=== PATIENT | male | born 1970 | race Caucasian/White ===

== ENCOUNTER 2020-01-28 15:02 | Inpatient (IN) | payer SELFPAY ==
[~2020-01-28] VITALS: Ht 200.7 cm; Wt 155.2 kg
[~2020-01-28 15:02] MED LIST: BYDUREON SC; CILOXAN 5 ML5 M1 OP; CILOXAN 5 ML5 M1 OT; CIPROFLOXACIN500 MG PO; DAYPRO600 M1 PO; HUMALOG100 U/ML SC; HYDROCODONE BIT1 T11 PO; LANTUS100 U/ML SC; METFORMIN1000 MG PO; PERCOCET 325 MG1 TA2 PO; PRECOSE50 MG PO; QUINAPRIL20 MG PO; ROBAXIN750 MG PO; VICODIN 500 MG-1 TAB PO; ZOFRAN4 MG PO
[2020-01-28 15:32] VITALS: BP 142/76
[2020-01-28 16:33] LABS: BASO % 0.5 % (0.0-1.0); EOS # 0.2 10*3/uL (0.0-0.4); EOS % 2.6 % (1.0-4.0); HEMATOCRIT 43.9 % (42.0-52.0); LYMPH # 1.3 10*3/uL (1.3-4.4); LYMPH % 16.9 % (27.0-41.0); MEAN CELL VOLUME 81.6 fl (80.0-94.0); MEAN CORPUSCULAR HGB 26.6 pg (27.0-31.0); MEAN CORPUSCULAR HGB CONC 32.6 g/dl (33.0-37.0); MEAN PLATELET VOLUME 9.8 fl (9.6-12.3); MONO # 0.5 10*3/uL (0.1-1.0); MONO % 6.6 % (3.0-9.0); NEUT # 5.3 10*3/uL (2.3-7.9); PLATELET COUNT AUTOMATED 239 10*3/uL (130-400); RED BLOOD COUNT 5.38 10*6/uL (4.50-5.90); RED CELL DISTRI WIDTH 13.5 % (0-14.5); WHITE BLOOD COUNT 7.4 10*3/uL (4.8-10.8)
[2020-01-28 16:55] LABS: ALBUMIN 2.6 gm/dl (3.1-4.5); ALKALINE PHOSPHATASE 130 U/L (45-117); BUN 15 mg/dl (7-24); CHLORIDE 97 mmol/L (98-107); CREATININE 1.01 mg/dL (0.70-1.30); POTASSIUM 4.6 mmol/L (3.5-5.1); SGOT/AST 10 IU/L (3-35); SGPT/ALT 22 U/L (12-78); SODIUM 134 mmol/L (136-145); TOTAL PROTEIN 7.8 gm/dL (6.4-8.2)
--- NOTE | 2020-01-28 18:25 | NUR ---
UNABLE TO TAKE PT TO FLOOR AT THIS TIME, PT IN ULTRASOUND.
--- NOTE | 2020-01-28 18:52 | NUR ---
PT REMAINS IN ULTRASOUND.
[2020-01-28 19:00] VITALS: BP 138/72
[2020-01-28 19:22] VITALS: BP 164/89
--- NOTE | 2020-01-28 19:22 | NUR ---
Time: 1921 A 49 year old male admitted to 4E under services of AGAPITO RODRIGUEZ DO. Pt. arrived via stretcher from ER. Chief complaint: signs of infection from rt foot. RICKY BANKS
[2020-01-28] MEDS ORDERED: HUMALOG100 UNIT/1 SQ (19:52)
[2020-01-28] MEDS ORDERED: METFORMIN XR500 MG PO (19:53)
[2020-01-28 20:00] VITALS: BP 164/89
--- NOTE | 2020-01-28 22:25 | NUR ---
PT. GIVEN NORCO AND RESTORIL PER PT REQUEST AT 2124. PT. SLEEPING, NORCO AND RESTORIL EFFECTIVE.
[2020-01-29] VITALS (8 sets, daily range): BP systolic 126–177; BP diastolic 72–93
--- NOTE | 2020-01-29 | NUR ---
PODIATRY NOTIFIED BY ER OF CONSULT. PT. NPO AFTER MIDNIGHT FOR I&D DEBRIDMENT IN AM.
[2020-01-29 06:52] LABS: BASO % 0.5 % (0.0-1.0); EOS # 0.2 10*3/uL (0.0-0.4); EOS % 2.2 % (1.0-4.0); HEMATOCRIT 47.7 % (42.0-52.0); LYMPH # 1.4 10*3/uL (1.3-4.4); LYMPH % 16.9 % (27.0-41.0); MEAN CELL VOLUME 83.1 fl (80.0-94.0); MEAN CORPUSCULAR HGB CONC 32.5 g/dl (33.0-37.0); MEAN PLATELET VOLUME 9.9 fl (9.6-12.3); MONO # 0.5 10*3/uL (0.1-1.0); NEUT # 5.9 10*3/uL (2.3-7.9); NEUT % 72.8 % (47.0-73.0); RED BLOOD COUNT 5.74 10*6/uL (4.50-5.90); RED CELL DISTRI WIDTH 13.7 % (0-14.5); WHITE BLOOD COUNT 8.1 10*3/uL (4.8-10.8)
[2020-01-29 06:53] LABS: PLATELET COUNT AUTOMATED 316 10*3/uL (130-400)
[2020-01-29 07:00] LABS: ACT PARTIAL THROMBO TIME 28.8 SECONDS (20.0-32.1)
[2020-01-29 07:08] LABS: ALBUMIN 2.7 gm/dl (3.1-4.5); ALKALINE PHOSPHATASE 118 U/L (45-117); BUN 11 mg/dl (7-24); CHLORIDE 97 mmol/L (98-107); CHOLESTEROL 149 mg/dL (<200); CREATININE 0.93 mg/dL (0.70-1.30); HDL CHOLESTEROL 26 mg/dl (40-60); LDL CHOLESTEROL 58 mg/dL (9-159); POTASSIUM 3.9 mmol/L (3.5-5.1); SGOT/AST 15 IU/L (3-35); SGPT/ALT 27 U/L (12-78); SODIUM 133 mmol/L (136-145); TOTAL PROTEIN 8.7 gm/dL (6.4-8.2); TRIGLYCERIDES 323 mg/dl (<150); VLDL CHOLESTEROL 65 mg/dL (6-40)
[2020-01-29 07:49] LABS: VITAMIN D, 25-HYDROXY 19.6 ng/mL (30-100)
--- NOTE | 2020-01-29 09:00 | NUR ---
case management attempted to visit with patient, he was out of room for procedure, will see later today
--- NOTE | 2020-01-29 11:21 | NUR ---
NOTIFIED OFFICE OF NEW CONSULT.
--- NOTE | 2020-01-29 22:45 | NUR ---
PRN IV MORPHINE GIVEN FOR COMPLAINTS OF FOOT PAIN RATING A 8/10. WILL CONTINUE TO MONITOR FOR EFFECTIVNESS
--- NOTE | 2020-01-29 23:20 | NUR ---
PT STATES PAIN IS BETTER, RATING IT A 4/10. WILL CONTINUE TO MONITOR, CALL LIGHT WITHIN REACH
[2020-01-30] VITALS: BP 131/73
[2020-01-30 03:28] LABS: BASO % 0.3 % (0.0-1.0); EOS # 0.1 10*3/uL (0.0-0.4); EOS % 1.1 % (1.0-4.0); HEMATOCRIT 42.6 % (42.0-52.0); LYMPH # 1.1 10*3/uL (1.3-4.4); LYMPH % 12.2 % (27.0-41.0); MEAN CELL VOLUME 83.4 fl (80.0-94.0); MEAN CORPUSCULAR HGB 26.6 pg (27.0-31.0); MEAN CORPUSCULAR HGB CONC 31.9 g/dl (33.0-37.0); MEAN PLATELET VOLUME 9.6 fl (9.6-12.3); MONO # 0.8 10*3/uL (0.1-1.0); MONO % 8.9 % (3.0-9.0); NEUT # 7.1 10*3/uL (2.3-7.9); NEUT % 76.4 % (47.0-73.0); PLATELET COUNT AUTOMATED 234 10*3/uL (130-400); RED BLOOD COUNT 5.11 10*6/uL (4.50-5.90); RED CELL DISTRI WIDTH 13.6 % (0-14.5); WHITE BLOOD COUNT 9.3 10*3/uL (4.8-10.8)
--- NOTE | 2020-01-30 03:50 | NUR ---
Patient sleeping. Respirations relaxed and easy. Mansoors DOMINIQUE Dunn
[2020-01-30 03:51] LABS: BUN 14 mg/dl (7-24); CHLORIDE 102 mmol/L (98-107); CREATININE 1.03 mg/dL (0.70-1.30); POTASSIUM 3.7 mmol/L (3.5-5.1); SODIUM 137 mmol/L (136-145)
--- NOTE | 2020-01-30 03:55 | NUR ---
DR ISRAEL NOTIFIED OF [facility] .7
--- NOTE | 2020-01-30 04:37 | NUR ---
PRN MORPHINE IV GIVEN FOR COMPLAINTS FO RIGHT FOOT PAIN WHICH IS RATED 5/10. WILL CONTINUE TO MONITOR FOR EFFECTIVENESS
--- NOTE | 2020-01-30 05:34 | NUR ---
MORPHINE EFFECTIVE PER PT, PAIN RATED 4/10. WILL CONTINUE TO MONITOR
[2020-01-30 08:00] VITALS: BP 147/73
--- NOTE | 2020-01-30 09:00 | NUR ---
[employer] Engineer in to talk to patient. Patient states lives at home with . There are 2 steps in the home. 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 discussed with him Veronique from [employer] will visit with him and see if he would qualify for medicaid and also help fill out the paperwork for help with the cos of the hospital stay. also discussed with him having a wound vac to his foot and that case management will contact [facility] and see if they have vicky care for home if he would need the wound vac at home, case management will follow with patient. ADARSH JOHN
--- NOTE | 2020-01-30 09:30 | NUR ---
case management contacted [facility], spoke to Riccardo, she stated they have vicky care but she is unable to quote an amount patient will be responsible for until they receive his fill out financial forms, she will fax these forms to case management, she stated the standard rate for daily rental of the wound vac is $125 a day. case management also spoke to Veronique from [employer], she stated she was going to send in the medicaid application for the patient. case management will follow
--- NOTE | 2020-01-30 10:06 | NUR ---
PATIENT C/O RIGHT FOOT PAIN. MEDICATED WITH MORPHINE PER PRN ORDER. WILL CONTINUE TO MONITOR.
--- NOTE | 2020-01-30 10:30 | NUR ---
PAIENT STATES MORPHINE WAS EFFECTIVE.
[2020-01-30 16:00] VITALS: BP 153/77
[2020-01-30 16:08] LABS: ACID FAST SPEC PROCESSING Tissue Grinding (.)
--- NOTE | 2020-01-30 17:00 | NUR ---
PATIENT C/O PAIN RIGHT FOOT, RATES 6/10 AND STABBING MEDICATED WITH MORPHINE ORDERED PRN. WHITE BOARD UPDATED.
--- NOTE | 2020-01-30 18:00 | NUR ---
PATIENT REPORTS SOME RELEIF FROM MORPHINE GIVEN X 1 HOUR AGO RATES PAIN 3/10
--- NOTE | 2020-01-30 19:30 | NUR ---
ASSESSMENT COMPLETE WITH NO INCIDENCE. PT STATES HE HAS SOME PAIN IN HIS RIGHT FOOT, BUT NO OTHER COMPLAINTS. RESPIRATIONS ARE RELAXED AND REGULAR. CALL LIGHT WITHIN REACH, WILL CONTINUE TO MONITOR
--- NOTE | 2020-01-30 21:10 | NUR ---
PRN MORPHINE IV GIVEN FOR COMPLAINTS OF RIGHT FOOT PAIN RATED A 6/10. WILL MONITOR FOR EFFECTIVNESS
--- NOTE | 2020-01-30 22:00 | NUR ---
PRN MORPHINE EFFECTIVE PER PT
[2020-01-31] VITALS: BP 155/79
--- NOTE | 2020-01-31 05:10 | NUR ---
PRN MORPHINE IV GIVEN FOR PAIN IN RIGHT FOOT RATED A 5/10. WILL MONITOR FOR EFFECTIVENESS
[2020-01-31 05:55] LABS: BASO % 0.5 % (0.0-1.0); EOS # 0.2 10*3/uL (0.0-0.4); EOS % 2.5 % (1.0-4.0); HEMATOCRIT 43.1 % (42.0-52.0); LYMPH # 1.3 10*3/uL (1.3-4.4); LYMPH % 20.5 % (27.0-41.0); MEAN CELL VOLUME 83.9 fl (80.0-94.0); MEAN CORPUSCULAR HGB 26.7 pg (27.0-31.0); MEAN CORPUSCULAR HGB CONC 31.8 g/dl (33.0-37.0); MEAN PLATELET VOLUME 10.1 fl (9.6-12.3); MONO # 0.6 10*3/uL (0.1-1.0); MONO % 10.1 % (3.0-9.0); NEUT # 4.1 10*3/uL (2.3-7.9); NEUT % 65.3 % (47.0-73.0); PLATELET COUNT AUTOMATED 213 10*3/uL (130-400); RED BLOOD COUNT 5.14 10*6/uL (4.50-5.90); WHITE BLOOD COUNT 6.3 10*3/uL (4.8-10.8)
[2020-01-31 05:56] LABS: ALBUMIN 2.3 gm/dl (3.1-4.5); ALKALINE PHOSPHATASE 92 U/L (45-117); BUN 11 mg/dl (7-24); CHLORIDE 101 mmol/L (98-107); CREATININE 1.08 mg/dL (0.70-1.30); POTASSIUM 3.9 mmol/L (3.5-5.1); SGOT/AST 10 IU/L (3-35); SGPT/ALT 19 U/L (12-78); SODIUM 133 mmol/L (136-145); TOTAL PROTEIN 7.6 gm/dL (6.4-8.2)
--- NOTE | 2020-01-31 06:09 | NUR ---
PRN MORPHINE EFFECTIVE, PER PT. WILL CONTINUE TO MONITOR
--- NOTE | 2020-01-31 07:00 | NUR ---
ARRIVED ON SHIFT, REPORT RECEIVED FROM OFFGOING NURSE, ASSUMED CARE OF PATIENT.
--- NOTE | 2020-01-31 07:45 | NUR ---
INTRODUCED SELF TO PATIENT, BED IN LOW POSITION, WHEEL LOCKS ENGAGED, SIDE RAILS UP X 2 FOR TURNING AND REPOSITIONING, CALL LIGHT WITHIN REACH, NO NEEDS VOICED AT THIS TIME, WHITE BOARD UPDATED.
[2020-01-31 08:00] VITALS: BP 150/80
--- NOTE | 2020-01-31 09:00 | NUR ---
case management visits with patient, gave him vicky care form from [facility] to fill out and case management will fax, also discussed with him if he needs iv antibiotics would he be able to come into the hospital on a daily basis and receive the iv antibiotics, he was agreeable he stated he had done this in the past. he stated if there is any cost to the wound vac he would be unable to afford this, he stated he was unable to afford his medications. educated him that he could have his prescriptons filled in the hospital pharmacy for only a few dollars a prescription and the hospital could pay for the first script. he was agreeable with this, case management will follow
--- NOTE | 2020-01-31 09:30 | NUR ---
CALL PLACED TO HOSPITALIST LINE, RECEIVED ORDER FOR PATIENT OK TO REMOVE TELEMETRY TO SHOWER.
[2020-01-31] MEDS ORDERED: CEFAZOLIN1 G1 IV (10:13)
[2020-01-31 12:00] VITALS: BP 138/81
--- NOTE | 2020-01-31 12:26 | NUR ---
CALL PLACED TO ADVISED PATIENTS XRAY WAS BACK AND IS IN GOOD PLACEMENT, ALSO LET HIM KNOW THAT PATIENT WAS NOT GOING TO BE ABLE TO COME IN TID FOR IV MEDICATION, REQUESTED I CALL DR. LUEVANO CALLED DR. GELLER, SPOKE WITH
--- NOTE | 2020-01-31 12:59 | NUR ---
SPOKE TO DR. IQBAL ADVISED THAT PATIENT WILL NOT BE ABLE TO COME THREE TIMES A DAY FOT IV ATB, BUT IS AGREEABLE TO DAILY, DR. LUEVANO STATED SHE WILL HAVE RESIDENT BRING UP SCRIPT FOR A DIFFERENT MEDICATION. SPOKE TO ADARSH IN CASE MANAGEMENT, SHE VERSED PATIENT COULD NOT GO HOME WITH WOUND VAC, SPOKE TO PODIATRY RESIDENT HE STATED HE WILL BE UP TO REMOVE IF PATIENT IS BEING DISCHARGED,, DR. JANG ADVISED.
--- NOTE | 2020-01-31 13:00 | NUR ---
case management received a message that Dr Slaughter let a prescription for iv antibiotics, these were every 8 hours and patient will have to come into the hospital as an outpatient, discussed this with patient and he stated he was not able to come into the hospital 3 times a day for iv antibiotics, he stated his is disabled and he is unable to drive and will have to have someone bring him to the hospital. talked with patient's nurse, she contacted Dr Slaughter and she changed patient's iv antibiotics to once a day, patient stated he was able to do this, case management also discussed with patient the wound vac, even with vicky care, was going to cost the patient $62 a day for rental and supplies, patient stated he was unable to afford this, the hospital is unable to help with these charges due to cost and liablity of equipment. talked with podiatry resident, they were insistant that patient have the wound vac at home, educated him that even with vicky care from [facility] the patient is still unable to afford the amount per week for the wound vac, patient will stay in the hospital over the weekend to monitor the drainage from the wound vac, he will be re evaluated on Monday, case management will follow
--- NOTE | 2020-01-31 14:09 | NUR ---
PODIATRY JUST COMPLETED WOUND CARE, PATIENT C/O RIGHT FOOT PAIN 10/10 MEDICATED WITH MORPHINE ORDERED.
--- NOTE | 2020-01-31 15:09 | NUR ---
PATIENT REPORT PAIN HAS EASED UP TO 5/1O FROM MORPHINE GIVEN X 1 HOUR AGO
--- NOTE | 2020-01-31 15:30 | NUR ---
PT ADMITS TO RIGHT FOOT PAIN. REFUSES PAIN MEDICATION AT THIS TIME.
[2020-01-31 16:00] VITALS: BP 156/78
--- NOTE | 2020-01-31 18:03 | NUR ---
PATIENT C/O BURING PAIN RIGHT FOOT, WORSENING SINCE DRESSING CHANGE TODAY, MEDICATED WITH MORPHINE ORDERED.
--- NOTE | 2020-01-31 19:10 | NUR ---
REPORT RECEIVED FROM KAMRON MARROQUIN. PT WATCHING TV. WOUND VAC IN PLACE. VOICES NO COMPLAINTS. CALL LIGHT IN REACH
[2020-01-31 20:00] VITALS: BP 145/74
--- NOTE | 2020-01-31 20:55 | NUR ---
MALINI GIVEN FOR COMPLAINTS OF R FOOT PAIN. WILL MONITOR.
--- NOTE | 2020-01-31 21:50 | NUR ---
PER PT, NORCO EFFECTIVE
--- NOTE | 2020-01-31 23:30 | NUR ---
PT SLEEPING AT THIS TIME. WOUND VAC IN PLACE. CALL LIGHT IN REACH
[2020-02-01] VITALS: BP 145/67
--- NOTE | 2020-02-01 02:30 | NUR ---
PT SLEEPING AT THIS TIME. WOUND VAC INTACT. CALL LIGHT IN REACH
--- NOTE | 2020-02-01 05:31 | NUR ---
IN TO SEE PT. PT AWAKENS EASILY AT THIS TIME. VOICES NO COMPLAINTS, CALL LIGHT IN REACH
[2020-02-01 05:52] LABS: BUN 10 mg/dl (7-24); CHLORIDE 102 mmol/L (98-107); CREATININE 0.96 mg/dL (0.70-1.30); POTASSIUM 3.8 mmol/L (3.5-5.1); SODIUM 137 mmol/L (136-145)
[2020-02-01 05:55] LABS: BASO % 0.3 % (0.0-1.0); EOS # 0.2 10*3/uL (0.0-0.4); HEMATOCRIT 42.1 % (42.0-52.0); LYMPH # 1.7 10*3/uL (1.3-4.4); LYMPH % 26.5 % (27.0-41.0); MEAN CELL VOLUME 83.4 fl (80.0-94.0); MEAN CORPUSCULAR HGB 26.3 pg (27.0-31.0); MEAN CORPUSCULAR HGB CONC 31.6 g/dl (33.0-37.0); MEAN PLATELET VOLUME 10.1 fl (9.6-12.3); MONO # 0.5 10*3/uL (0.1-1.0); MONO % 8.5 % (3.0-9.0); NEUT # 3.9 10*3/uL (2.3-7.9); NEUT % 60.6 % (47.0-73.0); PLATELET COUNT AUTOMATED 206 10*3/uL (130-400); RED BLOOD COUNT 5.05 10*6/uL (4.50-5.90); RED CELL DISTRI WIDTH 13.8 % (0-14.5); WHITE BLOOD COUNT 6.4 10*3/uL (4.8-10.8)
--- NOTE | 2020-02-01 07:00 | NUR ---
ARRIVED ON SHIFT, REPORT RECEIVED FROM OFFGOING NURSE, ASSUMED CARE OF PATIENT.
--- NOTE | 2020-02-01 07:19 | NUR ---
Shift chart check completed.
--- NOTE | 2020-02-01 07:30 | NUR ---
INTRODUCED SELF TO PATIENT, BED IN LOW POSITION WITH WHEEL LOCKS ENGAGED, SIDE RAILS UP X 2 FOR TURNING AND REPOSITIOINING, CALL LIGHT WITHIN REACH, NO NEEDS VOICED AT THIS TIME.
[2020-02-01 08:00] VITALS: BP 145/75
--- NOTE | 2020-02-01 08:47 | NUR ---
PATIENT C/O OF RIGHT FOOT AND LEG PAIN RATES 6/10 AND SHARP MEDICATED WITH NORCO ORDERED PRN, WHITE BOARD UPDATED.
--- NOTE | 2020-02-01 09:46 | NUR ---
FOLLOW UP ON NORCO GIVEN X 1 HOUR AGO, EFFECTIVE PATIENTS PAIN LEVEL NOW REPORTED AT 3/10.
[2020-02-01 12:00] VITALS: BP 147/78
--- NOTE | 2020-02-01 14:04 | NUR ---
PATIENT C/O OF FEELING CONSTIPATED, MEDICATED WITH PO DULCOLAX.
[2020-02-01 16:00] VITALS: BP 154/75
--- NOTE | 2020-02-01 19:00 | NUR ---
REPORT RECEIVED. PT SITTING UP IN BED. WOUND VAC IN PLACE, CALL LIGHT IN REACH
--- NOTE | 2020-02-01 21:08 | NUR ---
MALINI GIVEN FOR COMPLAINTS OF RIGHT FOOT PAIN. WILL MONITOR
--- NOTE | 2020-02-01 22:08 | NUR ---
PT STATES THAT NORCO HELPED HIS PAIN
[2020-02-02] VITALS: BP 134/76
--- NOTE | 2020-02-02 00:01 | NUR ---
PT SLEEPING AT THIS TIME. CALL LIGHT IN REACH
--- NOTE | 2020-02-02 03:00 | NUR ---
PT SLEEPING AT THIS TIME. WOUND VAC IN PLACE, CALL LIGHT IN REACH
--- NOTE | 2020-02-02 06:00 | NUR ---
PT AWAKENS EASILY UPON ENTERING ROOM. NO COMPLAINTS VOICED, CALL LIGHT IN REACH
[2020-02-02 06:07] LABS: BASO % 0.3 % (0.0-1.0); EOS # 0.2 10*3/uL (0.0-0.4); EOS % 2.6 % (1.0-4.0); HEMATOCRIT 42.7 % (42.0-52.0); LYMPH # 1.4 10*3/uL (1.3-4.4); LYMPH % 23.5 % (27.0-41.0); MEAN CELL VOLUME 83.1 fl (80.0-94.0); MEAN CORPUSCULAR HGB 26.3 pg (27.0-31.0); MEAN CORPUSCULAR HGB CONC 31.6 g/dl (33.0-37.0); MEAN PLATELET VOLUME 9.9 fl (9.6-12.3); MONO # 0.5 10*3/uL (0.1-1.0); MONO % 8.1 % (3.0-9.0); NEUT # 3.8 10*3/uL (2.3-7.9); PLATELET COUNT AUTOMATED 225 10*3/uL (130-400); RED BLOOD COUNT 5.14 10*6/uL (4.50-5.90); RED CELL DISTRI WIDTH 13.7 % (0-14.5); WHITE BLOOD COUNT 5.8 10*3/uL (4.8-10.8)
[2020-02-02 06:27] LABS: ALBUMIN 2.4 gm/dl (3.1-4.5); CHLORIDE 100 mmol/L (98-107); POTASSIUM 3.9 mmol/L (3.5-5.1); SODIUM 136 mmol/L (136-145)
[2020-02-02 06:33] LABS: ALKALINE PHOSPHATASE 92 U/L (45-117); BUN 12 mg/dl (7-24); SGOT/AST 15 IU/L (3-35); SGPT/ALT 18 U/L (12-78); TOTAL PROTEIN 7.7 gm/dL (6.4-8.2)
--- NOTE | 2020-02-02 07:00 | NUR ---
ARRIVED ON SHIFT, REPORT RECEIVED FROM OFF GOING NURSE, ASSUMED CARE OF PATIENT.
--- NOTE | 2020-02-02 07:30 | NUR ---
INTRODUCED SELF TO PATIENT, BED IN LOW POSITION, WHEEL LOCKS ENGAGED, SIDE RAILS UP X 2 FOR TURNING AND REPOSITIONING, CALL LIGHT WITHIN REACH, WOUND VAC, ATTACHED, NO NEEDS VOICED AT THIS TIME, WHITE BOARD UPDATED.
[2020-02-02 08:00] VITALS: BP 128/82
--- NOTE | 2020-02-02 09:34 | NUR ---
PATIENT C/O OF RIGHT FOOT PAIN 6/ MEDICATED WITH NORCO ORDERED WHITE BOARD UPDATED.
--- NOTE | 2020-02-02 09:36 | NUR ---
PATIENT C/O RIGHT FOOT PAIN 5/10 MEDICATED WITH NORCO ORDERED PRN, WHITE BOARD UPDATED.
--- NOTE | 2020-02-02 10:34 | NUR ---
PATIENT REPORTS GOOD RELEIF FROM NORCO GIVEN X 1 HOUR AGO.
--- NOTE | 2020-02-02 13:45 | NUR ---
PATIENT C/O OF CONSTIPATION, CALL PLACED TO DR. MENEZES SHE VERSED SHE WILL ORDER MOM.
--- NOTE | 2020-02-02 14:05 | NUR ---
PATIENT C/O OF CONSTIPATION MEDICATED WITH MOM ORDERED PRN.
[2020-02-02 16:00] VITALS: BP 109/76
--- NOTE | 2020-02-02 19:10 | NUR ---
REPORT RECEIVED. PT WATCHING TV. NO COMPLAINTS VOICED, CALL LIGHT IN REACH
[2020-02-02 20:00] VITALS: BP 154/96
--- NOTE | 2020-02-02 21:04 | NUR ---
NORCO GIVEN PER ORDER FOR COMPLAINTS OF RIGHT FOOT PAIN. WILL MONITOR
--- NOTE | 2020-02-02 22:00 | NUR ---
PER PT, NORCO EFFECTIVE FOR PAIN
[2020-02-03] VITALS: BP 146/85
--- NOTE | 2020-02-03 01:00 | NUR ---
PT SLEEPING AT THIS TIME.
--- NOTE | 2020-02-03 04:00 | NUR ---
PT ASLEEP AT THIS TIME. WOUND VAC IN PLACE, CALL LIGHT IN REACH
--- NOTE | 2020-02-03 06:28 | NUR ---
MALINI GIVEN FOR COMPLAINTS OF R FOOT PAIN. WILL MONITOR
--- NOTE | 2020-02-03 07:09 | NUR ---
PER PT, NORCO EFFECTIVE FOR PAIN
--- NOTE | 2020-02-03 07:30 | NUR ---
PT RESTING IN BED. VOICES NO CONCERNS. RESPS EASY AND NON LABORED. NO S/S OF DISTRESS NOTED. VSS. WHITE BOARD UPDATED. POC DISCUSSED W PT. A/O X3. WOUND VAC INTACT TO RLE-DRSG C/D/I, MINIMAL DRAINAGE NOTED. PT DENIES ANY NUMBNESS/TINGLING IN RLE. STATES HE WANTS TO GO HOME TODAY. PICC LINE IN R ARM PATENT. CALL LIGHT WITHIN REACH. WILL CONTINUE TO MONITOR.
[2020-02-03 08:00] VITALS: BP 153/77
--- NOTE | 2020-02-03 09:00 | NUR ---
case management visits with patient, he is a possibly discharge to home today and will be returning to the hospital as an outpatient on a daily basis for iv antibiotics, educated patient that case management set up 11am time spot for him to return to the hospital for iv antibiotic, if patient is not discharged to home today appointment time will be rescheduled
--- NOTE | 2020-02-03 10:40 | NUR ---
PER KAMILA PALACIOS NP PT CANNOT BE DISCHARGED HOME WITH A WOUND VAC-HE IS UNABLE TO AFFORD IT AND THE SUPPLIES. STATES TO CONTACT PODIATRY FOR THEM TO REMOVE IT.
--- NOTE | 2020-02-03 10:43 | NUR ---
ATTEMPTING TO REACH PODIATRY REGARDING DISCONTINUATION OF WOUND VAC. WILL TRY AGAIN
--- NOTE | 2020-02-03 10:51 | NUR ---
ATTEMPTED TO REACH PODIATRY RESIDENT AGAIN.
--- NOTE | 2020-02-03 11:09 | NUR ---
SPOKE W PODIATRY RESIDENT- STATE THEY ARE IN SURGERY AND SHE WILL RELAY MESSAGE TO THE DOCTOR
[2020-02-03 11:35] VITALS: BP 148/73
[2020-02-03] MEDS ORDERED: ERTAPENEM1 GM IJ ×2 (13:23→13:35)
[2020-02-03] MEDS ORDERED: LANTUS SOL100 UNIT/1 SC ×2 (13:27→13:42)
[2020-02-03] MEDS ORDERED: HUMALOG100 UNIT/1 SQ (13:31)
[2020-02-03] MEDS ORDERED: HYDROCODONE-AC1 EAC1 PO (13:33)
[2020-02-03] MEDS ORDERED: VITAMIN D31250 MC1 PO (13:39)
--- NOTE | 2020-02-03 14:14 | NUR ---
PODIATRY INTO REMOVE WOUND VAC-NEW DRESSING WAS APPLIED BY THEM. PT STATES HE WANTS TO GO HOME AND DOES NOT NEED PICTURES TAKEN OFF HIS LEG.
--- NOTE | 2020-02-03 15:15 | NUR ---
Discharge instructions reviewed with patient/family. Patient receptive and verbalizes understanding. Follow-up care arranged. Written instructions given to patient/family. HISSOM,JACIEL The Discharge Plan/Instructions have been completed.
== END 2020-02-03 14:31 | disposition home or self-care (01) | DRG 628 ==
LOC: ED 15:02 → EDHOLD 16:45 → 4E 16:45
PROVIDERS: Hospitalist; Podiatrist; Podiatrist Foot & Ankle Surgery; Student in an Organized Health Care Education/Training Program; ADMIT Family Medicine
DX: E11.69 Type 2 diabetes mellitus with other specified complication (principal); E43 Unspecified severe protein-calorie malnutrition; E87.1 Hypo-osmolality and hyponatremia; M86.171 Other acute osteomyelitis, right ankle and foot; L97.516 Non-pressure chronic ulcer of other part of right foot with bone involvement without evidence of necrosis; E11.628 Type 2 diabetes mellitus with other skin complications; E11.621 Type 2 diabetes mellitus with foot ulcer; E87.8 Other disorders of electrolyte and fluid balance, not elsewhere classified; E55.9 Vitamin D deficiency, unspecified; E11.65 Type 2 diabetes mellitus with hyperglycemia; S93.141A Subluxation of metatarsophalangeal joint of right great toe, initial encounter; L08.9 Local infection of the skin and subcutaneous tissue, unspecified; E11.42 Type 2 diabetes mellitus with diabetic polyneuropathy; E11.51 Type 2 diabetes mellitus with diabetic peripheral angiopathy without gangrene; D64.9 Anemia, unspecified; S91.101A Unspecified open wound of right great toe without damage to nail, initial encounter; B95.7 Other staphylococcus as the cause of diseases classified elsewhere; B95.4 Other streptococcus as the cause of diseases classified elsewhere; X58.XXXA Exposure to other specified factors, initial encounter; R79.82 Elevated C-reactive protein (CRP); Y93.89 Activity, other specified; Y92.89 Other specified places as the place of occurrence of the external cause; Y99.8 Other external cause status; Z89.421 Acquired absence of other right toe(s); Z87.891 Personal history of nicotine dependence; Z90.49 Acquired absence of other specified parts of digestive tract; Z80.52 Family history of malignant neoplasm of bladder; Z83.3 Family history of diabetes mellitus; Z82.49 Family history of ischemic heart disease and other diseases of the circulatory system; Z82.3 Family history of stroke; Z88.8 Allergy status to other drugs, medicaments and biological substances; Z88.2 Allergy status to sulfonamides; Z79.4 Long term (current) use of insulin; Z79.899 Other long term (current) drug therapy; Z68.38 Body mass index [BMI] 38.0-38.9, adult

== ENCOUNTER → 2020-03-06 | Outpatient (CLI) | payer OTHER ==
[~2020-03-06] MED LIST changes: +CEFAZOLIN1 G1 IV; +DOXYCYCLINE100 M3 PO; +ERTAPENEM1 GM IJ; +HUMALOG100 UNIT/1 SQ; +HYDROCODONE-AC1 EAC1 PO; +INVOKANA300 M1 PO; +LANTUS SOL100 UNIT/1 SC; +METFORMIN XR500 MG PO; +TRAMADOL HCL50 MG PO; +VITAMIN D31250 MC1 PO; +XARELTO10 MG PO
== END | disposition home or self-care (01) ==
LOC: RESCLI 01:18
PROVIDERS: ATTEND Internal Medicine
DX: E11.65 Type 2 diabetes mellitus with hyperglycemia (principal); E55.9 Vitamin D deficiency, unspecified; E11.42 Type 2 diabetes mellitus with diabetic polyneuropathy; I10 Essential (primary) hypertension; Z79.4 Long term (current) use of insulin; Z79.899 Other long term (current) drug therapy; Z89.421 Acquired absence of other right toe(s); Z98.890 Other specified postprocedural states; Z87.891 Personal history of nicotine dependence; Z88.8 Allergy status to other drugs, medicaments and biological substances

== ENCOUNTER → 2020-03-19 | Outpatient (CLI) | payer OTHER | END | disposition home or self-care (01) | LOC: COVID19 03-13 02:43 | PROVIDERS: ATTEND Podiatrist | DX: Z01.812 Encounter for preprocedural laboratory examination (principal); Z20.828 Contact with and (suspected) exposure to other viral communicable diseases ==

== ENCOUNTER → 2020-03-23 | Day surgery (SDC) | payer OTHER ==
[~2020-03-23] VITALS: Ht 200.6 cm; Wt 154.2 kg
[2020-03-23 07:09] LABS: BASO % 0.5 % (0.0-1.0); EOS # 0.1 10*3/uL (0.0-0.4); EOS % 1.9 % (1.0-4.0); HEMATOCRIT 45.9 % (42.0-52.0); LYMPH # 1.5 10*3/uL (1.3-4.4); LYMPH % 20.2 % (27.0-41.0); MEAN CELL VOLUME 81.4 fl (80.0-94.0); MEAN CORPUSCULAR HGB 26.4 pg (27.0-31.0); MEAN CORPUSCULAR HGB CONC 32.5 g/dl (33.0-37.0); MEAN PLATELET VOLUME 10.7 fl (9.6-12.3); MONO # 0.6 10*3/uL (0.1-1.0); MONO % 8.4 % (3.0-9.0); NEUT # 5.2 10*3/uL (2.3-7.9); NEUT % 68.6 % (47.0-73.0); PLATELET COUNT AUTOMATED 247 10*3/uL (130-400); RED BLOOD COUNT 5.64 10*6/uL (4.50-5.90); WHITE BLOOD COUNT 7.5 10*3/uL (4.8-10.8)
[2020-03-23 07:25] LABS: BUN 22 mg/dl (7-24); CHLORIDE 103 mmol/L (98-107); CREATININE 1.26 mg/dL (0.70-1.30); POTASSIUM 4.7 mmol/L (3.5-5.1); SODIUM 136 mmol/L (136-145)
[2020-03-23 07:45] VITALS: BP 125/74
[2020-03-23 10:29] VITALS: BP 138/74
[2020-03-23 10:44] VITALS: BP 146/75
--- NOTE | 2020-03-23 10:50 | NUR ---
PICC LINE DRSG CHANGED PER POLICY WHILE IN PACU FOLLOWING FOOT SURGERY. TOLERATED WELL. NRSG STAFF CLOSE BY.
--- NOTE | 2020-03-23 10:54 | NUR ---
PATIENT RATES PAIN 10/10 ANESTHESISA NOTIFIED.
[2020-03-23 10:59] VITALS: BP 148/81
--- NOTE | 2020-03-23 11:04 | NUR ---
PAIN IS 7/10 GOING TO MEDICATE
--- NOTE | 2020-03-23 11:11 | NUR ---
PATIENT STATES THE PAIN IS BETTER. NOW RATES IT 4/10
[2020-03-23 11:14] VITALS: BP 131/77
[2020-03-23 11:29] VITALS: BP 138/81
[2020-03-24 10:07] LABS: ACID FAST SPEC PROCESSING Tissue Grinding (.)
[2020-03-24 10:07] LABS: ACID FAST SPEC PROCESSING Tissue Grinding (.)
== END | disposition home or self-care (01) ==
LOC: SDC 03-11 14:00
PROVIDERS: ATTEND Podiatrist
DX: S86.012A Strain of left Achilles tendon, initial encounter (principal); S86.002A Unspecified injury of left Achilles tendon, initial encounter; M25.741 Osteophyte, right hand; L97.518 Non-pressure chronic ulcer of other part of right foot with other specified severity; M86.9 Osteomyelitis, unspecified; I13.0 Hypertensive heart and chronic kidney disease with heart failure and stage 1 through stage 4 chronic kidney disease, or unspecified chronic kidney disease; N18.9 Chronic kidney disease, unspecified; E11.22 Type 2 diabetes mellitus with diabetic chronic kidney disease; F41.9 Anxiety disorder, unspecified; F32.9 Major depressive disorder, single episode, unspecified; Z87.891 Personal history of nicotine dependence; Z88.0 Allergy status to penicillin; Z88.5 Allergy status to narcotic agent; Z88.2 Allergy status to sulfonamides; Z88.8 Allergy status to other drugs, medicaments and biological substances; Z98.890 Other specified postprocedural states; Z79.899 Other long term (current) drug therapy; X58.XXXA Exposure to other specified factors, initial encounter; Y93.89 Activity, other specified; Y92.89 Other specified places as the place of occurrence of the external cause; Y99.8 Other external cause status

== ENCOUNTER → 2020-06-18 | Outpatient (CLI) | payer OTHER | END | disposition home or self-care (01) | LOC: RESCLI 00:26 | PROVIDERS: ATTEND Internal Medicine Nephrology | DX: E11.65 Type 2 diabetes mellitus with hyperglycemia (principal); E11.42 Type 2 diabetes mellitus with diabetic polyneuropathy; R12 Heartburn; I10 Essential (primary) hypertension; Z79.4 Long term (current) use of insulin; Z88.8 Allergy status to other drugs, medicaments and biological substances ==

== ENCOUNTER → 2020-07-24 | Outpatient (CLI) | payer OTHER ==
[2020-07-24 11:17] LABS: MEAN CORPUSCULAR HGB 26.2 pg (27.0-31.0); MEAN CORPUSCULAR HGB CONC 31.9 g/dl (33.0-37.0); MEAN PLATELET VOLUME 11.5 fl (9.6-12.3); RED BLOOD COUNT 6.34 10*6/uL (4.50-5.90); RED CELL DISTRI WIDTH 15.5 % (0-14.5); WHITE BLOOD COUNT 6.3 10*3/uL (4.8-10.8)
[2020-07-24 11:26] LABS: ALBUMIN 3.6 gm/dl (3.1-4.5); ALKALINE PHOSPHATASE 93 U/L (45-117); BUN 16 mg/dl (7-24); CHLORIDE 105 mmol/L (98-107); CHOLESTEROL 211 mg/dL (<200); CREATININE 1.05 mg/dL (0.70-1.30); HDL CHOLESTEROL 34 mg/dl (40-60); POTASSIUM 4.5 mmol/L (3.5-5.1); SGOT/AST 33 IU/L (3-35); SGPT/ALT 61 U/L (12-78); SODIUM 139 mmol/L (136-145); TOTAL PROTEIN 7.9 gm/dL (6.4-8.2); TRIGLYCERIDES 696 mg/dl (<150)
[2020-07-24 13:32] LABS: VITAMIN D, 25-HYDROXY 22.8 ng/mL (30-100)
[2020-07-25 05:06] LABS: CREATININE,URINE 61.2 mg/dL (Not Estab.)
== END | disposition home or self-care (01) ==
LOC: LAB 09:48
PROVIDERS: ATTEND Family Medicine
DX: Z12.5 Encounter for screening for malignant neoplasm of prostate (principal); E11.65 Type 2 diabetes mellitus with hyperglycemia; E55.9 Vitamin D deficiency, unspecified; E78.00 Pure hypercholesterolemia, unspecified; R63.5 Abnormal weight gain; R53.83 Other fatigue; L03.115 Cellulitis of right lower limb

== ENCOUNTER → 2020-10-01 | Outpatient (CLI) | payer OTHER | END | disposition home or self-care (01) | LOC: RESCLI 02:08 | PROVIDERS: ATTEND Internal Medicine Nephrology | DX: E78.5 Hyperlipidemia, unspecified (principal); E11.628 Type 2 diabetes mellitus with other skin complications; I10 Essential (primary) hypertension; K21.9 Gastro-esophageal reflux disease without esophagitis; Z79.84 Long term (current) use of oral hypoglycemic drugs; Z79.899 Other long term (current) drug therapy; Z98.890 Other specified postprocedural states; Z87.891 Personal history of nicotine dependence; Z88.8 Allergy status to other drugs, medicaments and biological substances ==

== ENCOUNTER → 2020-10-01 | Outpatient (CLI) | payer OTHER | END | disposition home or self-care (01) | LOC: RAD 10:37 | PROVIDERS: ATTEND Family Medicine | DX: M54.2 Cervicalgia (principal) ==

== ENCOUNTER → 2021-01-13 | Outpatient (CLI) | payer OTHER | END | disposition home or self-care (01) | LOC: RESCLI 02:02 | PROVIDERS: ATTEND Emergency Medicine | DX: E11.65 Type 2 diabetes mellitus with hyperglycemia (principal); I10 Essential (primary) hypertension; E55.9 Vitamin D deficiency, unspecified; K21.9 Gastro-esophageal reflux disease without esophagitis; E78.5 Hyperlipidemia, unspecified; Z79.84 Long term (current) use of oral hypoglycemic drugs; Z79.899 Other long term (current) drug therapy; Z87.891 Personal history of nicotine dependence ==

== ENCOUNTER → 2021-03-11 | Outpatient (CLI) | payer MEDICAID | END | disposition home or self-care (01) | LOC: COVID19 16:28 | PROVIDERS: ATTEND Internal Medicine | DX: U07.1 COVID-19 (principal) ==

== ENCOUNTER → 2021-04-07 | Outpatient (CLI) | payer OTHER | END | disposition home or self-care (01) | LOC: RAD 15:35 | PROVIDERS: ATTEND Chiropractor Orthopedic | DX: M47.814 Spondylosis without myelopathy or radiculopathy, thoracic region (principal); M48.04 Spinal stenosis, thoracic region; M47.817 Spondylosis without myelopathy or radiculopathy, lumbosacral region; G95.89 Other specified diseases of spinal cord ==

== ENCOUNTER → 2021-04-21 | Outpatient (CLI) | payer OTHER | END | disposition home or self-care (01) | LOC: RESCLI 04-20 08:15 | PROVIDERS: ATTEND Internal Medicine Nephrology | DX: E11.65 Type 2 diabetes mellitus with hyperglycemia (principal); E11.42 Type 2 diabetes mellitus with diabetic polyneuropathy; I10 Essential (primary) hypertension; E78.5 Hyperlipidemia, unspecified; K21.9 Gastro-esophageal reflux disease without esophagitis; K31.84 Gastroparesis; S22.000S Wedge compression fracture of unspecified thoracic vertebra, sequela; Z79.4 Long term (current) use of insulin; Z79.899 Other long term (current) drug therapy; X58.XXXS Exposure to other specified factors, sequela ==

== ENCOUNTER → 2021-04-23 | Outpatient (CLI) | payer OTHER ==
[2021-04-23 16:02] LABS: HEMATOCRIT 52.4 % (42.0-52.0); MEAN CORPUSCULAR HGB 27.6 pg (27.0-31.0); MEAN CORPUSCULAR HGB CONC 32.8 g/dl (33.0-37.0); MEAN PLATELET VOLUME 11.2 fl (9.6-12.3); RED BLOOD COUNT 6.24 10*6/uL (4.50-5.90); RED CELL DISTRI WIDTH 14.4 % (0-14.5); WHITE BLOOD COUNT 7.7 10*3/uL (4.8-10.8)
[2021-04-23 16:16] LABS: ALBUMIN 3.5 gm/dl (3.1-4.5); ALKALINE PHOSPHATASE 108 U/L (45-117); BUN 22 mg/dl (7-24); CHLORIDE 101 mmol/L (98-107); CHOLESTEROL 194 mg/dL (<200); CPK 113 U/L (39-308); CREATININE 1.17 mg/dL (0.70-1.30); POTASSIUM 5.1 mmol/L (3.5-5.1); SGOT/AST 54 IU/L (3-35); SGPT/ALT 88 U/L (12-78); SODIUM 136 mmol/L (136-145); TOTAL PROTEIN 8.1 gm/dL (6.4-8.2)
[2021-04-23 16:30] LABS: TRIGLYCERIDES 1067 mg/dl (<150)
== END | disposition home or self-care (01) ==
LOC: LAB 15:38
PROVIDERS: ATTEND Family Medicine
DX: I10 Essential (primary) hypertension (principal); E11.9 Type 2 diabetes mellitus without complications; K21.9 Gastro-esophageal reflux disease without esophagitis; E78.2 Mixed hyperlipidemia; E55.9 Vitamin D deficiency, unspecified

== ENCOUNTER → 2021-07-21 | Outpatient (CLI) | payer OTHER | END | disposition home or self-care (01) | LOC: RESCLI 00:34 | PROVIDERS: ATTEND Internal Medicine Nephrology | DX: E11.65 Type 2 diabetes mellitus with hyperglycemia (principal); K21.9 Gastro-esophageal reflux disease without esophagitis; E11.42 Type 2 diabetes mellitus with diabetic polyneuropathy; E78.5 Hyperlipidemia, unspecified; Z12.11 Encounter for screening for malignant neoplasm of colon; R11.0 Nausea; I10 Essential (primary) hypertension; K31.84 Gastroparesis; S22.000S Wedge compression fracture of unspecified thoracic vertebra, sequela; X58.XXXS Exposure to other specified factors, sequela; Z68.41 Body mass index [BMI] 40.0-44.9, adult; Z79.4 Long term (current) use of insulin; Z87.891 Personal history of nicotine dependence; Z88.8 Allergy status to other drugs, medicaments and biological substances; Z79.84 Long term (current) use of oral hypoglycemic drugs ==

== ENCOUNTER → 2021-07-26 | Outpatient (CLI) | payer OTHER ==
[2021-07-26 10:50] LABS: BASO % 0.6 % (0.0-1.0); EOS # 0.2 10*3/uL (0.0-0.4); EOS % 2.1 % (1.0-4.0); HEMATOCRIT 53.4 % (42.0-52.0); LYMPH # 1.3 10*3/uL (1.3-4.4); LYMPH % 18.8 % (27.0-41.0); MEAN CELL VOLUME 84.4 fl (80.0-94.0); MEAN CORPUSCULAR HGB 27.3 pg (27.0-31.0); MEAN CORPUSCULAR HGB CONC 32.4 g/dl (33.0-37.0); MEAN PLATELET VOLUME 11.5 fl (9.6-12.3); MONO # 0.4 10*3/uL (0.1-1.0); MONO % 6.1 % (3.0-9.0); NEUT # 5.1 10*3/uL (2.3-7.9); NEUT % 72.1 % (47.0-73.0); PLATELET COUNT AUTOMATED 180 10*3/uL (130-400); RED BLOOD COUNT 6.33 10*6/uL (4.50-5.90)
[2021-07-26 11:28] LABS: VITAMIN D, 25-HYDROXY 8.9 ng/mL (30-100)
[2021-07-26 12:11] LABS: ALBUMIN 3.2 gm/dl (3.1-4.5); BUN 23 mg/dl (7-24); CHLORIDE 103 mmol/L (98-107); CHOLESTEROL 259 mg/dL (<200); POTASSIUM 4.7 mmol/L (3.5-5.1); SODIUM 135 mmol/L (136-145)
[2021-07-26 12:21] LABS: ALKALINE PHOSPHATASE 129 U/L (45-117); CREATININE 1.38 mg/dL (0.70-1.30); SGOT/AST 25 IU/L (3-35); TOTAL PROTEIN 7.8 gm/dL (6.4-8.2)
[2021-07-26 12:25] LABS: TRIGLYCERIDES 1599 mg/dl (<150)
[2021-07-26 12:41] LABS: SGPT/ALT 62 U/L (12-78)
== END | disposition home or self-care (01) ==
LOC: LAB 09:39
PROVIDERS: Hospitalist; ATTEND Internal Medicine Nephrology
DX: I10 Essential (primary) hypertension (principal); E11.65 Type 2 diabetes mellitus with hyperglycemia; E78.5 Hyperlipidemia, unspecified

== ENCOUNTER → 2021-09-15 | Outpatient (CLI) | payer OTHER | END | disposition home or self-care (01) | LOC: RESCLI 01:14 | PROVIDERS: ATTEND Internal Medicine Nephrology | DX: E11.65 Type 2 diabetes mellitus with hyperglycemia (principal); I10 Essential (primary) hypertension; E78.5 Hyperlipidemia, unspecified; Z79.4 Long term (current) use of insulin; K21.9 Gastro-esophageal reflux disease without esophagitis; Z79.899 Other long term (current) drug therapy ==

== ENCOUNTER → 2022-03-18 | Outpatient (CLI) | payer OTHER ==
[~2022-03-18] MED LIST changes: +ALDACTONE25 M1 PO; +ALDACTONE25 MG PO; +AMARYL4 MG PO; +BYETTA5 MCG/0.02 SC; +DIGOX125 MCG PO; +DIGOXIN250 MCG PO; +DILTIAZEM CD240 MG PO; +ELIQUIS5 M1 PO; +FAMOTIDINE20 M1 PO; +HYDROCHLOROTHIA25 M1 PO; +JARDIANCE25 MG PO; +LASIX40 MG PO; +LIPITOR10 MG PO; +METOPROLOL SUC100 M1 PO; +NEXIUM40 MG PO; +VENT7GM INH
== END | disposition home or self-care (01) ==
LOC: RAD 11:58
PROVIDERS: ATTEND Family Medicine
DX: J18.9 Pneumonia, unspecified organism (principal); J90 Pleural effusion, not elsewhere classified

== ENCOUNTER → 2022-04-07 | Outpatient (CLI) | payer OTHER ==
[~2022-04-07] MED LIST changes: +CIPRO500 MG PO
== END | disposition home or self-care (01) ==
LOC: CT 07:48
PROVIDERS: ATTEND Internal Medicine Critical Care Medicine
DX: J45.20 Mild intermittent asthma, uncomplicated (principal); J90 Pleural effusion, not elsewhere classified; J84.10 Pulmonary fibrosis, unspecified; I31.39 Other pericardial effusion (noninflammatory); R91.8 Other nonspecific abnormal finding of lung field; Z87.891 Personal history of nicotine dependence; Z68.41 Body mass index [BMI] 40.0-44.9, adult

== ENCOUNTER → 2022-07-29 | Outpatient (CLI) | payer MEDICAID ==
[2022-07-29 16:54] LABS: HEMATOCRIT 50.5 % (42.0-52.0); MEAN CELL VOLUME 82.5 fl (80.0-94.0); MEAN CORPUSCULAR HGB 26.8 pg (27.0-31.0); MEAN CORPUSCULAR HGB CONC 32.5 g/dl (33.0-37.0); MEAN PLATELET VOLUME 10.7 fl (9.6-12.3); RED BLOOD COUNT 6.12 10*6/uL (4.50-5.90); RED CELL DISTRI WIDTH 15.5 % (0-14.5); WHITE BLOOD COUNT 7.5 10*3/uL (4.8-10.8)
[2022-07-29 17:15] LABS: ALKALINE PHOSPHATASE 110 U/L (46-116); BUN 21 mg/dl (9-23); CHLORIDE 99 mmol/L (98-107); CHOLESTEROL 277 mg/dL (<200); SGPT/ALT 47 U/L (10-49); TOTAL PROTEIN 7.4 gm/dL (6.0-8.0)
[2022-07-29 17:16] LABS: TRIGLYCERIDES 1179 mg/dl (<150)
== END | disposition home or self-care (01) ==
LOC: LAB 16:22
PROVIDERS: ATTEND Family Medicine
DX: J98.11 Atelectasis (principal); J90 Pleural effusion, not elsewhere classified; J18.9 Pneumonia, unspecified organism; I10 Essential (primary) hypertension; E78.00 Pure hypercholesterolemia, unspecified; E11.9 Type 2 diabetes mellitus without complications

== ENCOUNTER → 2022-10-24 | Outpatient (CLI) | payer MEDICAID ==
[2022-10-24 16:29] LABS: ALKALINE PHOSPHATASE 112 U/L (46-116); BUN 22 mg/dl (9-23); CHLORIDE 102 mmol/L (98-107); CHOLESTEROL 263 mg/dL (<200); CPK 64 U/L (34-171); POTASSIUM 4.7 mmol/L (3.4-5.1); SGPT/ALT 46 U/L (10-49); TOTAL PROTEIN 7.4 gm/dL (6.0-8.0)
[2022-10-24 16:33] LABS: TRIGLYCERIDES 1463 mg/dl (<150)
== END | disposition home or self-care (01) ==
LOC: LAB 15:12
PROVIDERS: ATTEND Family Medicine
DX: I10 Essential (primary) hypertension (principal); E11.9 Type 2 diabetes mellitus without complications; E78.00 Pure hypercholesterolemia, unspecified

== ENCOUNTER → 2022-11-24 | Outpatient (CLI) | payer MEDICAID ==
[2022-11-24 14:15] LABS: BASO % 0.4 % (0.0-1.0); EOS # 0.2 10*3/uL (0.0-0.4); EOS % 2.7 % (1.0-4.0); HEMATOCRIT 50.9 % (42.0-52.0); LYMPH # 1.9 10*3/uL (1.3-4.4); LYMPH % 25.3 % (27.0-41.0); MEAN CELL VOLUME 84.4 fl (80.0-94.0); MEAN CORPUSCULAR HGB 27.4 pg (27.0-31.0); MEAN CORPUSCULAR HGB CONC 32.4 g/dl (33.0-37.0); MONO # 0.5 10*3/uL (0.1-1.0); MONO % 6.6 % (3.0-9.0); NEUT # 4.8 10*3/uL (2.3-7.9); NEUT % 64.6 % (47.0-73.0); PLATELET COUNT AUTOMATED 219 10*3/uL (130-400); RED BLOOD COUNT 6.03 10*6/uL (4.50-5.90); RED CELL DISTRI WIDTH 13.9 % (0-14.5); WHITE BLOOD COUNT 7.4 10*3/uL (4.8-10.8)
[2022-11-24 14:48] LABS: ALKALINE PHOSPHATASE 84 U/L (46-116); BUN 16 mg/dl (9-23); CHLORIDE 103 mmol/L (98-107); CHOLESTEROL 220 mg/dL (<200); POTASSIUM 4.4 mmol/L (3.4-5.1); SGPT/ALT 48 U/L (10-49); TOTAL PROTEIN 7.5 gm/dL (6.0-8.0); TRIGLYCERIDES 792 mg/dl (<150)
[2022-11-24 14:51] LABS: VITAMIN D, 25-HYDROXY 22.4 ng/mL (30-100)
== END | disposition home or self-care (01) ==
LOC: LAB 13:45
PROVIDERS: ATTEND Family Medicine
DX: E55.9 Vitamin D deficiency, unspecified (principal); E78.00 Pure hypercholesterolemia, unspecified; R33.9 Retention of urine, unspecified; Z79.899 Other long term (current) drug therapy

== ENCOUNTER → 2023-01-12 | Outpatient (CLI) | payer MEDICAID | END | disposition home or self-care (01) | LOC: RAD 12:32 | PROVIDERS: ATTEND Family Medicine | DX: M25.511 Pain in right shoulder (principal) ==